=== PATIENT | male | born 1965 ===

== ENCOUNTER 2018-10-12 05:29 | Inpatient (IN) ==
[2018-10-12] MEDS ORDERED: GABAPENTIN 400 MG CAPSULE PO ONE (06:00)
[2018-10-12] MEDS ORDERED: FAMOTIDINE 20 MG TABLET PO ONE (06:00)
[2018-10-12] MEDS ORDERED: ACETAMINOPHEN 500 MG TABLET PO ONE (06:00)
[2018-10-12] MEDS ORDERED: VANCOMYCIN 1,000 MG VIAL ONE (06:05)
[2018-10-12] MEDS ORDERED: ceFAZolin 1,000 MG VIAL ONE (06:05)
[2018-10-12] MEDS ORDERED: GABAPENTIN 400 MG CAPSULE ONE (06:06)
[2018-10-12] MEDS ORDERED: ACETAMINOPHEN 500 MG TABLET ONE (06:06)
[2018-10-12] MEDS ORDERED: FAMOTIDINE 20 MG TABLET ONE (06:07)
[2018-10-12] MEDS ORDERED: ROPIVACAINE 0.5% 30 ML VIAL ONE (06:20)
[2018-10-12] MEDS ORDERED: TRANEXAMIC ACID 1,000 MG/10 ML VIAL ONE (06:23)
[2018-10-12] MEDS ORDERED: BUPIVACAINE SPINAL 0.75% 2 ML AMP SPINAL ONE (06:35)
[2018-10-12] MEDS ORDERED: DEXAMETHASONE 4 MG/1 ML VIAL ONE (06:36)
[2018-10-12] MEDS ORDERED: BISACODYL 10 MG SUPP RECTAL PRN (06:58)
[2018-10-12] MEDS ORDERED: LACTULOSE 20 GM/30 ML UDCUP PO PRN (06:58)
[2018-10-12] MEDS ORDERED: diphenhydrAMINE CAP 25 MG CAPSULE PO PRN (06:58)
[2018-10-12] MEDS ORDERED: TEMAZEPAM 7.5 MG CAPSULE PO PRN (06:58)
[2018-10-12] MEDS ORDERED: PROMETHAZINE 25 MG/1 ML VIAL IM PRN (06:58)
[2018-10-12] MEDS ORDERED: MAGNESIUM HYDROXIDE SUSP 30 ML UDCUP PO PRN (06:58)
[2018-10-12] MEDS ORDERED: VANCOMYCIN INJ 1,000 MG in SODIUM CHLORIDE 0.9% 250 ML IV ONE (07:00)
[2018-10-12] MEDS ORDERED: LACTATED RINGERS 1,000 ML IV SCH (07:00)
[2018-10-12] MEDS ORDERED: ceFAZolin 1,000 MG in SYRINGE 1 EACH IV ONE (07:00)
[2018-10-12] MEDS ORDERED: HYDROmorphone 2 MG/1 ML VIAL ONE (08:47)
[2018-10-12] MEDS ORDERED: ONDANSETRON 4 MG/2 ML VIAL ONE (08:47)
[2018-10-12] MEDS ORDERED: ONDANSETRON 4 MG/2 ML VIAL IV PRN (08:49)
[2018-10-12] MEDS: HYDROmorphone 2 MG/1 ML VIAL IV PRN ×4 (08:50→09:05)
[2018-10-12] MEDS ORDERED: MIDAZOLAM 2 MG/2 ML VIAL ONE (08:58)
[2018-10-12] MEDS ORDERED: SEVOFLURANE 1 UNIT/15 MINUTE INH ONE (08:58)
[2018-10-12] MEDS ORDERED: PROPOFOL 200 MG/20 ML VIAL IV ONE (08:58)
[2018-10-12] MEDS ORDERED: GLYCOPYRROLATE 0.4 MG/2 ML VIAL ONE (08:59)
[2018-10-12] MEDS ORDERED: NEOSTIGMINE 10 MG/10 ML VIAL ONE (08:59)
[2018-10-12] MEDS ORDERED: LACTATED RINGERS 1,000 ML IV ONE (08:59)
[2018-10-12] MEDS ORDERED: ROCURONIUM 100 MG/10 ML VIAL IV ONE (08:59)
[2018-10-12] MEDS ORDERED: fentaNYL 100 MCG/2 ML VIAL ONE (08:59)
[2018-10-12] MEDS: LISINOPRIL 10 MG TABLET PO SCH (13:16)
[2018-10-12] MEDS: ceFAZolin 2,000 MG in PREMIX 1 EACH IV SCH ×2 (13:25→21:00)
[2018-10-12] MEDS ORDERED: MORPHINE 4 MG/1 ML VIAL IV PRN (13:44)
[2018-10-12] MEDS: DOCUSATE SODIUM 100 MG CAPSULE PO SCH ×2 (14:00→20:53)
[2018-10-12] MEDS: ONDANSETRON 4 MG/2 ML VIAL IV PRN (14:13)
[2018-10-12] MEDS: MORPHINE 4 MG/1 ML VIAL IV PRN (15:03)
[2018-10-12] MEDS: FONDAPARINUX 2.5 MG/0.5 ML SYRINGE SUBCUT SCH (20:53)
[2018-10-13] MEDS: MORPHINE 4 MG/1 ML VIAL IV PRN ×3 (00:29→19:22)
[2018-10-13 04:48] LABS: Basophils % 0.2 % (0.0-0.8); Eosinophils % 0.2 % (0.00-10.9); Hematocrit 35.8 VOL% (42.0-52.0); Hemoglobin 11.8 GM/DL (14.0-18.0); Immature Granulocytes % 0.7 %; Immature Granulocytes Absolute 0.06 #; Lymphocytes # 1.2 10*3/uL (1.4-4.0); Lymphocytes % 13.9 % (21.2-54.2); Mean Corpuscular Volume 94.2 FL (87-102); Mean Platelet Volume 11.4 FL (9.6-12.0); Monocytes % 6.8 % (1.7-12.7); Neutrophils % 78.2 % (38.7-73.9); Platelet Count 130 T/CUMM (130-400); Red Cell Distribution Width 12.2 % (9.3-17.3); White Blood Count 8.7 T/CUMM (4-12)
[2018-10-13 05:20] LABS: Calcium 8.2 MG/DL (8.5-10.1); Osmolality,Calculated 277.7 MOS/KG (273-304)
[2018-10-13] MEDS: DOCUSATE SODIUM 100 MG CAPSULE PO SCH ×2 (08:22→21:38)
[2018-10-13] MEDS: LISINOPRIL 10 MG TABLET PO SCH (08:22)
[2018-10-13] MEDS: FONDAPARINUX 2.5 MG/0.5 ML SYRINGE SUBCUT SCH (21:39)
[2018-10-14] MEDS: MORPHINE 4 MG/1 ML VIAL IV PRN (01:58)
[2018-10-14] MEDS: LISINOPRIL 10 MG TABLET PO SCH (08:44)
[2018-10-14] MEDS: DOCUSATE SODIUM 100 MG CAPSULE PO SCH (08:44)
[2018-10-14] MEDS: ONDANSETRON 4 MG/2 ML VIAL IV PRN (09:58)
[2018-10-14 11:09] VITALS: BP 135/77
== END 2018-10-14 13:30 | disposition home or self-care (01) | DRG 470 ==
LOC: N.OR 05:29 → N.SDSINP 05:44 → N.3E 12:59
PROVIDERS: ADMIT Orthopaedic Surgery; ATTEND Orthopaedic Surgery

== ENCOUNTER 2019-10-24 05:25 | Inpatient (IN) ==
[2019-10-24] MEDS ORDERED: DEXTROSE 10% 250 ML BAG IV PRN (10:09)
[2019-10-24] MEDS ORDERED: GLUCAGON 1 MG VIAL IM PRN (10:09)
[2019-10-24] MEDS ORDERED: MORPHINE 4 MG/1 ML VIAL IV PRN (11:06)
[2019-10-24] MEDS: NICOTINE 14 MG/24 HR PATCH TRANSDERM SCH (13:10)
[2019-10-24] MEDS: ACETAMINOPHEN 325 MG TABLET PO PRN (13:11)
[2019-10-24] MEDS: ONDANSETRON 4 MG/2 ML VIAL IV PRN ×2 (13:11→18:02)
[2019-10-24 13:32] LABS: Basophils % 0.1 % (0.0-0.8); Hemoglobin 14.4 GM/DL (14.0-18.0); Immature Granulocytes % 0.5 %; Immature Granulocytes Absolute 0.06 #; Lymphocytes # 0.4 10*3/uL (1.4-4.0); Lymphocytes % 2.8 % (21.2-54.2); Mean Corpuscular HGB Conc 33.5 GM/DL (32-36); Mean Corpuscular Volume 89.4 FL (87-102); Mean Platelet Volume 12.1 FL (9.6-12.0); Monocytes % 3.5 % (1.7-12.7); Neutrophils % 93.1 % (38.7-73.9); Platelet Count 128 T/CUMM (130-400); Red Blood Count 4.81 MC/CUMM (3.8-5.5); Red Cell Distribution Width 12.8 % (9.3-17.3)
[2019-10-24 13:49] LABS: Apearance,Urine CLEAR (Clear); Bilirubin,Urine Negative (Negative); Blood, Urine Negative (Negative); Glucose,Urine (UA) Negative (Negative); Ketones,Urine 5 mg/dL (Negative); Mucus,Urine Occasional /LPF (Occasional); Nitrite,Urine Negative (Negative); Protein,Urine 30 MG/DL; RBC,Urine <1 /HPF (0-4); Urine Color Amber (Yellow); Urine Specific Gravity 1.035 (1.001-1.035); WBC,Urine <1 /HPF (0-6)
[2019-10-24 13:50] LABS: Osmolality,Calculated 266.4 MOS/KG (273-304)
[2019-10-24] MEDS: AMPICILLIN/SULBACTAM 3,000 MG in SODIUM CHLORIDE 0.9% 100 ML IV SCH ×2 (14:01→22:57)
[2019-10-24 14:25] LABS: Ferritin 834.2 ng/ml (26-388)
[2019-10-24 15:26] LABS: Band Neutrophils 8 % (0-10); Lymphocytes 4 % (20-55); Platelet Estimate Adequate; Segmented Neutrophils 85 % (50-85); Total Cells Counted 100
[2019-10-25] MEDS: ACETAMINOPHEN 325 MG TABLET PO PRN ×3 (05:25→17:12)
[2019-10-25 05:48] LABS: Basophils % 0.1 % (0.0-0.8); Hematocrit 38.2 VOL% (42.0-52.0); Immature Granulocytes % 1.7 %; Lymphocytes # 0.6 10*3/uL (1.4-4.0); Lymphocytes % 3.3 % (21.2-54.2); Mean Corpuscular Volume 89.3 FL (87-102); Mean Platelet Volume 12.6 FL (9.6-12.0); Neutrophils % 89.9 % (38.7-73.9); Platelet Count 101 T/CUMM (130-400); Red Blood Count 4.28 MC/CUMM (3.8-5.5); White Blood Count 17.7 T/CUMM (4-12)
[2019-10-25 06:13] LABS: Albumin 2.6 G/DL (3.4-5.0); Calcium 7.5 MG/DL (8.5-10.1); Osmolality,Calculated 268.4 MOS/KG (273-304); Thyroid Stimulating Hormone 0.833 uIU/ml (0.358-3.74); Total Protein 6.7 G/DL (6.4-8.3)
[2019-10-25 06:18] LABS: Band Neutrophils 7 % (0-10); Hypochromasia 1+; Lymphocytes 1 % (20-55); Polychromasia Slight; Segmented Neutrophils 89 % (50-85); Total Cells Counted 100
[2019-10-25 06:19] LABS: Microcytosis Slight; Platelet Estimate Decreased
[2019-10-25] MEDS ORDERED: MAGNESIUM SULF RIDER 2 GM in PREMIX 1 EACH IV PRN (07:18)
[2019-10-25] MEDS ORDERED: MAGNESIUM SULF RIDER 4 GM in PREMIX 1 EACH IV PRN (07:18)
[2019-10-25] MEDS: AMPICILLIN/SULBACTAM 3,000 MG in SODIUM CHLORIDE 0.9% 100 ML IV SCH ×2 (08:00→16:11)
[2019-10-25] MEDS: NICOTINE 14 MG/24 HR PATCH TRANSDERM SCH (08:30)
[2019-10-25] MEDS ORDERED: PANTOPRAZOLE 40 MG TABLET PO SCH (09:00)
[2019-10-26] MEDS: AMPICILLIN/SULBACTAM 3,000 MG in SODIUM CHLORIDE 0.9% 100 ML IV SCH ×3 (00:08→16:50)
[2019-10-26 05:18] LABS: Basophils % 0.1 % (0.0-0.8); Hemoglobin 12.6 GM/DL (14.0-18.0); Immature Granulocytes % 0.8 %; Immature Granulocytes Absolute 0.11 #; Lymphocytes # 0.5 10*3/uL (1.4-4.0); Lymphocytes % 3.8 % (21.2-54.2); Mean Corpuscular HGB Conc 33.2 GM/DL (32-36); Mean Corpuscular Volume 89.4 FL (87-102); Mean Platelet Volume 12.1 FL (9.6-12.0); Neutrophils % 90.3 % (38.7-73.9); Platelet Count 66 T/CUMM (130-400); Red Blood Count 4.25 MC/CUMM (3.8-5.5); Red Cell Distribution Width 12.7 % (9.3-17.3); White Blood Count 13.7 T/CUMM (4-12)
[2019-10-26 05:50] LABS: Albumin 2.3 G/DL (3.4-5.0); Bilirubin,Total 0.9 MG/DL (0.2-1.0); Calcium 8.3 MG/DL (8.5-10.1); Osmolality,Calculated 267.4 MOS/KG (273-304); Total Protein 6.4 G/DL (6.4-8.3)
[2019-10-26 06:07] LABS: Band Neutrophils 2 % (0-10); Hypochromasia Slight; Lymphocytes 4 % (20-55); Microcytosis 1+; Segmented Neutrophils 93 % (50-85); Total Cells Counted 100
[2019-10-26 06:08] LABS: Ovalocytes Slight; Platelet Estimate Decreased
[2019-10-26] MEDS: NICOTINE 14 MG/24 HR PATCH TRANSDERM SCH (08:46)
[2019-10-26] MEDS: ONDANSETRON 4 MG/2 ML VIAL IV PRN (09:47)
[2019-10-26] MEDS ORDERED: ACETAMINOPHEN 325 MG TABLET PO PRN (10:49)
[2019-10-26] MEDS: SODIUM CHLORIDE 0.9% 1,000 ML IV SCH ×2 (12:18→21:08)
[2019-10-26] MEDS: POTASSIUM CHLORIDE 20 MEQ TABLET PO PRN ×4 (16:50→22:39)
[2019-10-26] MEDS: DOXYCYCLINE HYCLATE 100 MG CAPSULE PO SCH (20:38)
[2019-10-26] MEDS: SULFAMETHOX/TRIMETHOPRIM 800-160 MG TABLET PO SCH (20:40)
[2019-10-26] MEDS: cefTRIAXone 1,000 MG in SYRINGE 1 EACH IV SCH (20:42)
[2019-10-27] MEDS: SODIUM CHLORIDE 0.9% 1,000 ML IV SCH ×2 (06:12→16:17)
[2019-10-27] MEDS: SULFAMETHOX/TRIMETHOPRIM 800-160 MG TABLET PO SCH ×2 (08:49→20:00)
[2019-10-27] MEDS: NICOTINE 14 MG/24 HR PATCH TRANSDERM SCH (08:49)
[2019-10-27] MEDS: DOXYCYCLINE HYCLATE 100 MG CAPSULE PO SCH ×2 (08:54→20:00)
[2019-10-27] MEDS ORDERED: ACETAMINOPHEN 500 MG TABLET PO PRN (09:00)
[2019-10-27 09:27] LABS: Basophils % 0.1 % (0.0-0.8); Eosinophils % 0.1 % (0.00-10.9); Hematocrit 37.7 VOL% (42.0-52.0); Hemoglobin 12.4 GM/DL (14.0-18.0); Immature Granulocytes % 0.7 %; Immature Granulocytes Absolute 0.06 #; Lymphocytes # 0.7 10*3/uL (1.4-4.0); Lymphocytes % 7.4 % (21.2-54.2); Mean Corpuscular HGB Conc 32.9 GM/DL (32-36); Mean Corpuscular Volume 90.6 FL (87-102); Mean Platelet Volume 13.2 FL (9.6-12.0); Monocytes % 10.1 % (1.7-12.7); Neutrophils % 81.6 % (38.7-73.9); Red Blood Count 4.16 MC/CUMM (3.8-5.5); Red Cell Distribution Width 12.7 % (9.3-17.3); White Blood Count 8.7 T/CUMM (4-12)
[2019-10-27 09:32] LABS: Platelet Count 83 T/CUMM (130-400)
[2019-10-27 09:48] LABS: Hypochromasia 1+; Microcytosis Slight; Platelet Estimate Decreased
[2019-10-27 10:03] LABS: Osmolality,Calculated 267.4 MOS/KG (273-304)
[2019-10-27] MEDS: cefTRIAXone 1,000 MG in SYRINGE 1 EACH IV SCH (20:00)
[2019-10-28] MEDS: SODIUM CHLORIDE 0.9% 1,000 ML IV SCH ×2 (02:17→13:01)
[2019-10-28 03:41] LABS: Osmolality,Calculated 269.1 MOS/KG (273-304)
[2019-10-28] MEDS: POTASSIUM CHLORIDE 20 MEQ TABLET PO PRN ×3 (06:48→11:34)
[2019-10-28 07:53] LABS: SARS-CoV-2 Total Ab Interp Reactive
[2019-10-28 08:03] LABS: Basophils % 0.3 % (0.0-0.8); Eosinophils % 0.4 % (0.00-10.9); Hematocrit 37.4 VOL% (42.0-52.0); Hemoglobin 12.2 GM/DL (14.0-18.0); Immature Granulocytes % 1.1 %; Lymphocytes % 10.8 % (21.2-54.2); Mean Corpuscular HGB Conc 32.6 GM/DL (32-36); Mean Corpuscular Volume 92.3 FL (87-102); Mean Platelet Volume 13.3 FL (9.6-12.0); Monocytes % 11.5 % (1.7-12.7); Neutrophils % 75.9 % (38.7-73.9); Platelet Count 93 T/CUMM (130-400); Red Blood Count 4.05 MC/CUMM (3.8-5.5); Red Cell Distribution Width 13.1 % (9.3-17.3); White Blood Count 9.4 T/CUMM (4-12)
[2019-10-28 08:25] LABS: Hypochromasia Slight; Microcytosis Slight; Platelet Estimate Decreased
[2019-10-28] MEDS: NICOTINE 14 MG/24 HR PATCH TRANSDERM SCH (08:57)
[2019-10-28] MEDS: DOXYCYCLINE HYCLATE 100 MG CAPSULE PO SCH (08:58)
[2019-10-28] MEDS: SULFAMETHOX/TRIMETHOPRIM 800-160 MG TABLET PO SCH (08:58)
[2019-10-28 11:55] VITALS: BP 137/88
== END 2019-10-28 13:29 | disposition hospice, home (50) | DRG 727 ==
LOC: N.2E 09:30 → SUATTDRO 09:30
PROVIDERS: ADMIT Internal Medicine; ATTEND Internal Medicine